=== PATIENT | male | born 1985 | race Caucasian/White ===

== ENCOUNTER 2021-01-16 09:30 | Outpatient (RCR) | payer OTHER, SELFPAY ==
[2021-01-16 09:38] VITALS: BMI 41.4
[2021-01-16 09:42] VITALS: BMI 41.4
== END 2021-04-02 09:23 | disposition home or self-care (01) ==
LOC: ANHDMC 09:30
PROVIDERS: PCP Internal Medicine; Referring Provider Nurse Practitioner; Visit Provider Nurse Practitioner
DX: E11.9 Type 2 diabetes mellitus without complications (principal); Z71.3 Dietary counseling and surveillance
CPT/HCPCS: 97802

== ENCOUNTER 2021-03-15 14:44 | Outpatient (CLI) | payer OTHER, SELFPAY ==
--- NOTE | ~2021-03-15 | XR_ITS ---
EXAMINATION: XR ankle RT min 3V DATE: 03/15/2021 15:00 INDICATION: Right ankle pain. TECHNIQUE: 4 views of right ankle were obtained. COMPARISON: None. FINDINGS: Bone alignment is normal. No fracture. Joint spaces are well maintained. There are enthesop hytes at the posterior and plantar aspects of calcaneal tuberosity. IMPRESSION: 1. No fracture. Reviewed, dictated and finalized at location A. IMPRESSION: 1. No fracture.
--- NOTE | ~2021-03-15 | XR_ITS ---
EXAMINATION: XR foot RT min 3V DATE: 03/15/2021 15:00 INDICATION: Right foot pain. TECHNIQUE: 4 views of right foot were obtained. COMPARISON: None. FINDINGS: Bone alignment is normal. No fracture. There is mild osteoarthritis of first metatarsophala ngeal joint. There are enthesophytes at the posterior and plantar aspects of calcaneal tuberosity. IMPRESSION: 1. Mild osteoarthritis of first metatarsophalangeal joint. Reviewed, dictated and finalized at location A.
== END 2021-03-15 14:45 | disposition home or self-care (01) ==
LOC: ANHIMG 14:48
PROVIDERS: PCP Internal Medicine; Visit Provider Clinical Nurse Specialist
DX: M19.071 Primary osteoarthritis, right ankle and foot (principal)
CPT/HCPCS: 73610; 73630

== ENCOUNTER 2021-07-28 21:17 | Emergency (ER) | payer OTHER, SELFPAY ==
--- NOTE | ~2021-07-28 | XR_ITS ---
EXAMINATION: XR knee RT min 4V EXAM DATE: 07/28/2021 21:49 INDICATION: Initial encounter following injury, with pain of the right knee. TECHNIQUE: Right knee frontal, crosstable lateral, orthogonal oblique projections for interpretation . There is no prior study for comparison. FINDINGS: No evidence osteochondral defect or joint body in the right knee joint. No sizable joint effusion. There are no acute fractures or dislocations identified. There is no subcutaneous gas. T he soft tissue is unremarkable. There are no radiopaque foreign bodies. IMPRESSION: 1. Right knee exam without acute osseous findings. Reviewed, dictated and finalized at location A. ENT FINANCE SPECIALIST
[2021-07-28 21:33] VITALS: BP 134/92; PULSE 96; RESP 17; TEMP 36.2; O2SAT 100
--- NOTE | 2021-07-28 21:37 | ED.LOWEXIN ---
HPI - Extremity Injury (Lower) General Chief Complaint: Extremity Injury, Lower <Kyra David PA-C - Last Filed: 07/28/21 23:29> Stated Complaint: right leg pain <CHARLES Cassidy Last Filed: 07/28/21 23:29> Time Seen by Provider: 07/28/21 21:33 <Kyra David PA-C - Last Filed: 07/28/21 23:29> Source: patient <CHARLES Cassidy Last Filed: 07/28/21 23:29> Mode of arrival: ambulatory <CHARLES Cassidy Last Filed: 07/28/21 23:29> Limitations: no limitations <CHARLES Cassidy Last Filed: 07/28/21 23:29> History of Present Illness HPI Narrative: This is a 35 year old male that presents to the ER for right knee injury sustained just prior to arrival. Reports he was walking up the steps and one gave away. Reports this caused him to fall forward onto his right knee. Reports pain and bruising to the area. Denies decreased ROM or numbness. <Kyra David PA-C - Last Filed: 07/28/21 23:29> Related Data Home Medications: Home Medications Medication Instructions Recorded Confirmed acetaminophen 500 mg tablet 500 mg PO Q6H PRN 10/24/20 07/11/21 ibuprofen 200 mg capsule 200 mg PO Q6H PRN 10/24/20 07/11/21 melatonin 5 mg capsule mg PO 10/24/20 07/11/21 <Kyra David PA-C - Last Filed: 07/28/21 23:29> Allergies/Adverse Reactions: Allergies Allergy/AdvReac Type Severity Reaction Status Date / Time Sulfa (Sulfonamide AdvReac Unknown Nausea and Verified 07/28/21 21:37 Antibiotics) Vomiting <CHARLES Cassidy Last Filed: 07/28/21 23:29> Review of Systems Review of Systems: CONSTITUTIONAL: Denies fever MUSCULOSKELETAL: Reports joint pain, and myalgia. NEUROLOGIC: Denies numbness, or weakness. <CHARLES Cassidy Last Filed: 07/28/21 23:29> All systems reviewed & are unremarkable except as noted in HPI and below <Kyra David PA-C - Last Filed: 07/28/21 23:29> PMFSH Past Medical History Medical History: Medical History (Updated 07/29/21 @ 00:00 by Background [place]) Allergies Asthma Diabetes mellitus Telangiectasia <Kyra David PA-C - Last Filed: 07/28/21 23:29> Family History Family History: Family History Mother Depression Anxiety Alcohol abuse Father Diabetes mellitus Sibling Diabetes mellitus Grandparent Diabetes mellitus Hypertension <Kyra David PA-C - Last Filed: 07/28/21 23:29> Social History Social History: Social History Smoking status: Never smoker Alcohol intake: current Spiritual care concerns: No <Kyra David PA-C - Last Filed: 07/28/21 23:29> Exam Narrative: GENERAL: Well-appearing, well-nourished, and in no acute distress. HEAD: Normocephalic, atraumatic. EYES: EOMI. EXTREMITIES: Normal range of motion. No edema or obvious deformity. Normal DP pulses. Normal sensation SKIN: Warm, dry, no rash. NEURO: No focal deficits. Alert and oriented x3. 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 I was available for evaluation and consultation, I agree with the documentation as above <Husam Harrison MD - Last Filed: 07/29/21 05:14> Vital Signs Vital signs: Vital Signs Temperature 36.2 C L 07/28/21 21:33 Pulse Rate 96 07/28/21 21:33 Respiratory Rate 17 07/28/21 21:33 Blood Pressure 134/92 H 07/28/21 21:33 Pulse Oximetry 100 07/28/21 21:33 Temperature 36.2 C L 07/28/21 22:59 Pulse Rate 85 07/28/21 22:59 Respiratory Rate 20 07/28/21 22:59 Blood Pressure 137/92 H 07/28/21 22:59 Pulse Oximetry 98 07/28/21 22:59 <Kyra David PA-C - Last Filed: 07/28/21 23:29> Vital Signs Temperature 36.2 C L 07/28/21 21:33 Pulse Rate 96 11
[2021-07-28] MEDS: ACETAMINOPHEN 500 MG TABLET 1000 MG PO (22:12)
--- NOTE | 2021-07-28 22:20 | PC.NURSE ---
Pt to ED H3 and reports of walking up stairs and 1st stair giving out, causing pt to fall and strike his right knee on 2nd and 3rd steps. no edema/deformity/discoloration. pt denies hitting head. denies loc. able to get up without assist after fall.
[2021-07-28 22:59] VITALS: BP 137/92; PULSE 85; RESP 20; TEMP 36.2; O2SAT 98
== END 2021-07-28 23:49 | disposition home or self-care (01) ==
PROVIDERS: Emergency Provider Emergency Medicine; PCP Internal Medicine
DX: S80.01XA Contusion of right knee, initial encounter (principal); J45.909 Unspecified asthma, uncomplicated; E11.9 Type 2 diabetes mellitus without complications; Z79.84 Long term (current) use of oral hypoglycemic drugs; W10.9XXA Fall (on) (from) unspecified stairs and steps, initial encounter
CPT/HCPCS: 73564; 99283; A9270

== ENCOUNTER 2021-08-27 18:47 | Emergency (ER) | payer OTHER, SELFPAY ==
--- NOTE | ~2021-08-27 | XR_ITS ---
EXAMINATION: XR knee RT 3V DATE: 08/27/2021 22:03 INDICATION: TECHNIQUE: Persistent right knee pain post injury one month prior of the right knee were obtained COMPARISON: None. FINDINGS: Alignment is normal. No fracture. Joint spaces appear normal on nonweightbearing imaging. No joint ef fusion/layering lipohemarthrosis. Soft tissues are unremarkable. IMPRESSION: 1. Negative right knee radiographs. Reviewed, dictated and finalized at location H. ERCIAL HOUSEKEEPER
[2021-08-27 18:53] VITALS: BP 154/101; PULSE 85; RESP 17; TEMP 36.4; O2SAT 98
[2021-08-27 21:13] VITALS: BP 140/83; PULSE 88; RESP 18; TEMP 36.7; O2SAT 99
--- NOTE | 2021-08-27 21:51 | ED.LOWEXIN ---
HPI - Extremity Injury (Lower) General Chief Complaint: Extremity Injury, Lower Stated Complaint: right knee injury Time Seen by Provider: 08/27/21 21:02 Source: patient Mode of arrival: ambulatory Limitations: no limitations History of Present Illness HPI Narrative: Patient is a 35-year-old male complaining of right knee pain and swelling that is been ongoing for the past month. Patient states that he saw his PCP recently and was placed on a Medrol Dosepak. Patient states that since starting his steroid pack he noticed an increase swelling of his right knee. Patient also states that he felt like he had a fever yesterday, subjective. Patient denies any calf pain or swelling, chest pain, shortness of breath, or cold extremity. Related Data Home Medications Medication Instructions Recorded Confirmed acetaminophen 500 mg tablet 500 mg PO Q6H PRN 10/24/20 08/08/21 ibuprofen 200 mg capsule 200 mg PO Q6H PRN 10/24/20 08/08/21 melatonin 5 mg capsule mg PO 10/24/20 08/08/21 Allergies Allergy/AdvReac Type Severity Reaction Status Date / Time Sulfa (Sulfonamide AdvReac Unknown Nausea and Verified 08/27/21 21:18 Antibiotics) Vomiting Review of Systems Review of Systems: All systems reviewed & are unremarkable except as noted in HPI and below Constitutional: Constitutional: Reports as per HPI PMFSH Past Medical History Medical History Allergies Asthma Diabetes mellitus Telangiectasia Family History Family History Mother Depression Anxiety Alcohol abuse Father Diabetes mellitus Sibling Diabetes mellitus Grandparent Diabetes mellitus Hypertension Social History Social History Smoking status: Never smoker Alcohol intake: current Spiritual care concerns: No Exam Const: General: no acute distress and alert Orientation/consciousness: patient oriented x3 HENMT: Head: normal to inspection Eyes: Conjunctivae: conjunctivae normal Neck: Neck: normal visual inspection Resp: Effort & Inspection: normal respiratory effort Skin: General skin exam: normal color Rashes: no rashes Extrem: General: normal to inspection Other: Negative for any deformity or effusion. Negative for knee redness or warmth. Full range of motion of the right knee but with pain. Negative for Homans' sign. Negative for calf pain or swelling. Neurovascular is intact. Course Vital Signs Vital signs: Vital Signs Temperature 36.4 C L 08/27/21 18:53 Pulse Rate 85 08/27/21 18:53 Respiratory Rate 17 08/27/21 18:53 Blood Pressure 154/101 H 08/27/21 18:53 Pulse Oximetry 98 08/27/21 18:53 Temperature 36.7 C 08/27/21 21:13 Pulse Rate 88 08/27/21 21:13 Respiratory Rate 18 08/27/21 21:13 Blood Pressure 140/83 08/27/21 21:13 Pulse Oximetry 99 08/27/21 21:13 Discharge Plan Discharge Clinical Impression: Knee pain, right Qualifiers: Chronicity: unspecified Qualified Code(s): M25.561 - Pain in right knee Patient Disposition: Home, Self-Care Condition: Stable Instructions: Knee Pain (ED) Prescriptions: No Action metformin 1,000 mg tablet 1,000 mg PO BID Qty: 180 RF: 3 lisinopril 2.5 mg tablet 2.5 mg PO DAILY Qty: 90 RF: 3 gabapentin 300 mg capsule 300 mg PO BID Qty: 60 RF: 2 acetaminophen [Tylenol Extra Strength] 500 mg tablet 500 mg PO Q6H PRNRF: 0 ibuprofen 200 mg capsule 200 mg PO Q6H PRNRF: 0 melatonin 5 mg capsule PO RF: 0 methylprednisolone [Medrol (Dillon)] 4 mg tablets,dose pack See Rx Instructions PO PER PKG DIR Qty: 21 RF: 0 Follow-up/Referrals: Dov Santillan DO [Primary Care Provider] - 08/28/21 Time of Disposition: 22:28
[2021-08-27 23:00] VITALS: BP 131/77; PULSE 81; RESP 15; TEMP 36.6; O2SAT 99
== END 2021-08-27 23:00 | disposition home or self-care (01) ==
PROVIDERS: Emergency Provider Emergency Medicine; PCP Internal Medicine
DX: M25.561 Pain in right knee (principal); J45.909 Unspecified asthma, uncomplicated; E11.9 Type 2 diabetes mellitus without complications; Z79.84 Long term (current) use of oral hypoglycemic drugs
CPT/HCPCS: 73562; 99283

== ENCOUNTER 2021-09-13 13:18 | Outpatient (CLI) | payer OTHER, SELFPAY ==
--- NOTE | ~2021-09-13 | MR_ITS ---
EXAMINATION: MR knee RT wo con DATE: 09/13/2021 14:18 INDICATION: Right knee pain TECHNIQUE: Magnetic resonance imaging (MRI) of the right knee was performed without intravenous contr ast. Sequences included coronal PD-weighted FSE, coronal PD-weighted FS FSE, sagittal T2-weighted FS E, sagittal PD-weighted FS FSE and axial PD weighted fat saturated FSE. COMPARISON: None. FINDINGS: Medial compartment: Medial meniscus is normal. Articular cartilage is normal. Lateral compartment: Lateral meniscus is normal. Articular cartilage is normal. Patellofemoral compartment: Articular cartilage is normal. Ligaments and tendons: Anterior and posterior cruciate ligaments are normal. The medial collateral ligament and fibular julius ateral ligament complex are normal. The extensor mechanism is normal. The visualized medial and later al hamstring tendons as well as the iliotibial band are normal. Fluid: Physiologic amount of fluid in the joint space. No loose osteochondral bodies identified. Osseous/other: Small low signal intensity bone island at the lateral femoral condyle. Otherwise normal marrow signal with no fracture or pathologic marrow replacing process. IMPRESSION: 1. Unremarkable right knee MRI. Cartilage, menisci and stabilizing ligaments of the knee are normal. Reviewed, dictated and finalized at location B. NER AND PRESSER
== END 2021-09-13 13:19 | disposition home or self-care (01) ==
LOC: ANHIMG 13:23
PROVIDERS: PCP Internal Medicine; Visit Provider Internal Medicine
DX: S82.091A Other fracture of right patella, initial encounter for closed fracture (principal)
CPT/HCPCS: 73721

== ENCOUNTER 2022-03-15 18:43 | Emergency (ER) | payer OTHER, SELFPAY ==
--- NOTE | ~2022-03-15 | XR_ITS ---
XR foot RT min 3V DATE: 03/15/2022 19:34 INDICATION: Stubbed fifth digit. Bruising and swelling. TECHNIQUE: 4 portable views COMPARISON: None FINDINGS: Mild plantar and posterior calcaneal enthesopathy. No fracture or dislocation, periosteal reaction or bone destruction. No erosive change. IMPRESSION: No fracture or dislocation is detected Reviewed, dictated and finalized at location A.
[2022-03-15 18:46] VITALS: BP 145/82; PULSE 98; RESP 18; TEMP 36.4; O2SAT 98
--- NOTE | 2022-03-15 19:24 | ED.LOWEXIN ---
HPI - Extremity Injury (Lower) General Chief Complaint: Extremity Injury, Lower Stated Complaint: toe injury Time Seen by Provider: 03/15/22 19:02 Source: RN notes reviewed History of Present Illness HPI Narrative: Patient presents emergency department from home for right fifth toe pain. Patient states that just prior to arrival he had hit a slick spot on his deck and his foot had gone forward striking a post on his right lateral fifth toe he states has had pain since that time is worse with standing on the foot he denies any other trauma or injury he denies falling to the ground states he is not taking thing for pain Related Data Home Medications Medication Instructions Recorded Confirmed acetaminophen 500 mg tablet 500 mg PO Q6H PRN 10/24/20 01/30/22 (Tylenol Extra Strength) ibuprofen 200 mg capsule 200 mg PO Q6H PRN 10/24/20 01/30/22 melatonin 5 mg capsule mg PO 10/24/20 01/30/22 Allergies Allergy/AdvReac Type Severity Reaction Status Date / Time Sulfa (Sulfonamide AdvReac Unknown Nausea and Verified 03/15/22 19:33 Antibiotics) Vomiting Review of Systems Review of Systems: Gen.: Denies fevers or chills Musculoskeletal: See HPI Neuro: Denies numbness, tingling, weakness Skin: Denies rash Endo: Denies DM PMFSH Past Medical History Medical History Allergies Asthma Bleeding nose Congestion of throat Diabetes mellitus Establishing care with new doctor, encounter for Foot pain Hyperlipidemia Knee pain Obesity Patellar tendonitis Screening for endocrine disorder Screening for lipid disorders Telangiectasia Thrombocytopenia Surgical History Surgical History History of surgery on wrist 1998, 2020 History of surgical procedure on mouth 1999 Family History Family History Mother Depression Anxiety Alcohol abuse Father Diabetes mellitus Sibling Diabetes mellitus Grandparent Diabetes mellitus Hypertension Other Leukemia Other Arthritis Asthma Social History Social History Social History: Caffeine-coffee/soda daily Smoking status: Never smoker Alcohol intake: current Alcohol use details: rarely Spiritual care concerns: No Exam Narrative: APPEARANCE: No acute distress, nontoxic, resting in bed Eyes: EOMI HEENT: Normocephalic, atraumatic, RESPIRATORY: No respiratory distress MUSCULOSKELETAl: Tender to palpation over the right lateral foot at the base of the fifth toe mild swelling and ecchymosis remainder the foot is nontender dorsalis pedis pulse 2+ neurovascular intact NEURO: Awake and alert. Following commands, speech normal, no focal deficits SKIN:: Warm, dry. Normal Color no rash or lesions Course Course Emergency Course: Discussed with patient results of workup and diagnosis. Discussed need for follow-up with primary care, proper use of medication, and reasons to return to the emergency department. Patient understands and agrees to current treatment plan Vital Signs Vital signs: Vital Signs Temperature 97.6 F 03/15/22 18:46 Pulse Rate 98 03/15/22 18:46 Respiratory Rate 18 03/15/22 18:46 Blood Pressure 145/82 H 03/15/22 18:46 Pulse Oximetry 98 03/15/22 18:46 Oxygen Delivery Room Air 03/15/22 18:46 Temperature 97.6 F 03/15/22 18:46 Pulse Rate 98 03/15/22 18:46 Respiratory Rate 18 03/15/22 18:46 Blood Pressure 145/82 H 03/15/22 18:46 Pulse Oximetry 98 03/15/22 18:46 Oxygen Delivery Room Air 03/15/22 18:46 MDM - Extremity Injury (Lower) Imaging Data Radiologist's impression: ITS Impressions Foot X-Ray 03/15/22 19:39 IMPRESSION: No fracture or dislocation is detected Discharge Plan Discharge Clinical Impression: Contusion of foot, right Patient Disposition: Home
== END 2022-03-15 20:21 | disposition home or self-care (01) ==
PROVIDERS: Emergency Provider Emergency Medicine; PCP Internal Medicine
DX: S90.31XA Contusion of right foot, initial encounter (principal); J45.909 Unspecified asthma, uncomplicated; E11.9 Type 2 diabetes mellitus without complications; R78.5 Finding of other psychotropic drug in blood; E66.9 Obesity, unspecified; Z68.41 Body mass index [BMI] 40.0-44.9, adult; W22.09XA Striking against other stationary object, initial encounter
CPT/HCPCS: 73630; 99283

== ENCOUNTER 2022-04-05 10:37 | Outpatient (CLI) | payer OTHER, SELFPAY ==
[2022-04-05 11:09] LABS: Basophils Percent Auto 0.6 % (0.2-1.2); Eosinophils Absolute Auto 0.1 K/mm3 (0-0.3); Eosinophils Percent Auto 1.3 % (0-4.4); Hematocrit 43.9 % (42.0-52.0); Hemoglobin 14.8 g/dL (14.0-18.0); Immature Granulocyte Absolute 0.02 K/mm3 (0.00-0.031); Immature Granulocyte Percent A 0.3 % (0-0.5); Lymphocytes Percent Auto 29.5 % (18.3-44.2); Mean Corpuscular HGB Conc 33.7 g/dl (32-36); Mean Corpuscular Hemoglobin 29.6 pg (26-34); Mean Corpuscular Volume 87.8 fl (80-100); Mean Platelet Volume 12.2 fl (7.4-10.4); Monocytes Absolute Auto 0.5 K/mm3 (0.1-0.6); Monocytes Percent Auto 7.3 % (2.6-8.5); Neutrophils Absolute Auto 4.3 K/mm3 (1.3-6.7); Platelet Count Result 109 k/mm3 (150-375); Red Cell Distribution Width 13.2 % (11.5-14.5); White Blood Count 7.1 K/mm3 (4.5-10.0)
[2022-04-05 12:26] LABS: Iron 124 ug/dL (49-181)
[2022-04-05 12:30] LABS: Alanine Aminotransferase 37 U/L (6-50); Albumin Level 4.5 g/dL (3.5-5.1); Alkaline Phosphatase 98 U/L (38-126); Anion Gap 10 mmol/L (8-16); Aspartate Amino Transferase 31 U/L (17-59); Blood Urea Nitrogen 9 mg/dL (9-20); Carbon Dioxide 29 mmol/L (22-30); Chloride 101 mmol/L (98-107); Estimated Glomerular Filt Rate > 60; Glucose 140 mg/dL (65-110); Potassium 3.9 mmol/L (3.4-5.0); Sodium 140 mmol/L (137-145)
[2022-04-05 12:38] LABS: Percent Iron Saturation 38 % (20-50)
== END 2022-04-05 10:38 | disposition home or self-care (01) ==
LOC: ANHLAB 10:38
PROVIDERS: PCP Internal Medicine; Visit Provider Internal Medicine Hematology & Oncology
DX: D69.59 Other secondary thrombocytopenia (principal); D64.9 Anemia, unspecified
CPT/HCPCS: 36415; 80053; 82607; 82728; 82746; 83540; 83550; 85025

== ENCOUNTER → 2022-04-29 09:04 | Outpatient (CLI) | payer OTHER, SELFPAY ==
--- NOTE | ~2022-04-29 | US_ITS ---
EXAMINATION: US abdomen complete DATE: 04/29/2022 09:30 INDICATION: Secondary thrombocytopenia. TECHNIQUE: Multiple grayscale and Doppler ultrasound images of the abdomen were obtained. COMPARISON: None FINDINGS: There is mild splenomegaly measuring 14.0 cm. The visualized portions of the head and body of the pancreas are normal. The liver is normal without focal lesion. No liver surface nodularity. Th ere is normal flow in main portal vein. The gallbladder is normal in size and contains gallstones. No gallbladder wall thickening or sonographic Alexander sign. The common duct is normal and measures 4 mm. The kidneys are normal in size. Inferior vena cava is normal. The visualized portion of abdominal ao rta is normal. IMPRESSION: 1. Mild splenomegaly. 2. Cholelithiasis. No evidence of acute cholecystitis. Reviewed, dictated and finalized at location A.
== END ==
PROVIDERS: PCP Internal Medicine Hematology & Oncology; Visit Provider Internal Medicine Hematology & Oncology
DX: D69.59 Other secondary thrombocytopenia (principal); R16.1 Splenomegaly, not elsewhere classified; K80.20 Calculus of gallbladder without cholecystitis without obstruction
CPT/HCPCS: 76700

== ENCOUNTER 2022-05-31 08:50 | Outpatient (CLI) | payer OTHER, SELFPAY ==
--- NOTE | ~2022-05-31 | CT_ITS ---
EXAMINATION: CT chest abdomen pelvis w con DATE: 05/31/2022 09:35 INDICATION: Lymphadenopathy TECHNIQUE: Computed tomography (CT) of the chest, abdomen, and pelvis was performed with 100 CC Omnip aque 350 intravenous contrast. Automated exposure control and iterative reconstruction technique were employed. Exam dose: 1783.48 mGy-cm total exam DLP. COMPARISON: 04/29/2022 complete abdominal ultrasound examination FINDINGS: CHEST CT: There are a few calcified pulmonary granulomas consistent with old pulmonary granulomatous disease. N o pulmonary infiltrate or consolidation or pulmonary mass lesion is detected. Normal heart size. No pericardial or pleural effusion. No thoracic aortic aneurysm or dissection. No hilar or mediastinal mass lesion or lymphadenopathy. No axillary lymphadenopathy. ABDOMEN/PELVIS CT: There is a prominent calcified approximately 1.8 x 2.2 cm gallstone. No gallbladder wall thickening o r pericholecystic fluid or fat stranding. Diffuse hepatic steatosis. No hepatic space-occupying mass lesion is evident. The spleen measures approximately 13 cm vertical dimension. No splenic mass lesion is noted. No pancreatic mass lesion, calcification or ductal dilatation. Normal morphology of the adrenal glands. Occasional renal cysts measuring up to approximately 6.7 mm dimension. There are couple of up to 4 mm right renal cysts. No urinary tract calculus or hydroureteronephrosis. Normal caliber of the abdominal aorta. No intraperitoneal or retroperitoneal or pelvic mass lesion or adenopathy or ascites. Normal appendix. Mild colonic diverticulosis; no CT evidence of diverticulitis. No bowel obstruction. There is an approximately 2.4 cm segment of circumferential soft tissue thickening of the sigmoid col on (series 3 image 220). Constricting apple core lesion is not excluded. Colon workup is recommended, either barium enema or colonoscopy. No pneumoperitoneum. Very small fat-containing umbilical hernia. Prostate gland and urinary bladder are unremarkable. No suspicious osteolytic or osteoblastic lesions are noted. IMPRESSION: Questionable circumferential constricting soft tissue mass of sigmoid colon; colon hnag p is recommended (barium enema or colonoscopy Mild diverticulosis of the colon Normal appendix Cholelithiasis Hepatic steatosis Borderline splenomegaly Bilateral renal cysts Reviewed, dictated and finalized at Location A. Reviewed, dictated and finalized at location B. IMPRESSION: Questionable circumferential constricting soft tissue mass of sigm oid colon; colon workup is recommended (barium enema or colonoscopy Mild diverticulosis of the colon Normal appendix Cholelithiasis Hepatic steatosis Borderline splenomegaly Bilateral renal cysts
[2022-05-31 09:23] LABS: Estimated Glomerular Filt Rate > 60
== END 2022-05-31 08:51 | disposition home or self-care (01) ==
PROVIDERS: PCP Internal Medicine; Visit Provider Internal Medicine Hematology & Oncology
DX: R59.1 Generalized enlarged lymph nodes (principal); R59.9 Enlarged lymph nodes, unspecified; K57.30 Diverticulosis of large intestine without perforation or abscess without bleeding; K80.20 Calculus of gallbladder without cholecystitis without obstruction; N28.1 Cyst of kidney, acquired
CPT/HCPCS: 71260; 74177; Q9967

== ENCOUNTER 2022-06-14 01:00 | Day surgery (SDC) | payer OTHER, SELFPAY ==
[2022-06-10 13:28] VITALS: BMI 38.4
[2022-06-14 08:30] VITALS: BP 117/92; PULSE 16; RESP 16; TEMP 36.2; O2SAT 100; BMI 38.6
[2022-06-14 08:48] LABS: Glucose Point of Care 126 mg/dl (65-105)
[2022-06-14] MEDS: LACTATED RINGERS 1,000 ML 150 ML IV CONT (08:52)
--- NOTE | 2022-06-14 09:15 | WPDANESEPPF ---
Anes - Initial Pre Proc Eval Procedure: Operation Date: 06/14/22 09:30 Proposed Procedures p Colonoscopy - Eran Zapata MD Date/Time: 06/14/22 09:15 Surgeon: Eran Zapata MD Pre Op Diagnosis: Abnormal CT Scan Patient Data Age: 36 Gender: M Height: 1.68 m Weight: 108.6 kg Last Vital Signs Temp 97.1 F L 06/14/22 08:30 Pulse 16 L 06/14/22 08:30 Resp 16 06/14/22 08:30 BP 117/92 H 06/14/22 08:30 Pulse Ox 100 06/14/22 08:30 O2 Del Method Room Air 06/14/22 08:30 Allergies Allergy/AdvReac Type Severity Reaction Status Date / Time Sulfa (Sulfonamide AdvReac Severe Nausea and Verified 06/10/22 13:32 Antibiotics) Vomiting Home Medications Medication Instructions Recorded Confirmed Type acetaminophen 500 mg tablet 500 mg PO Q6H PRN PAIN 10/24/20 06/10/22 History (Tylenol Extra Strength) melatonin 5 mg capsule 5 mg PO HS 10/24/20 06/10/22 History atorvastatin 10 mg tablet 10 mg PO QHS #90 tabs 01/30/22 06/10/22 Rx lisinopril 2.5 mg tablet 2.5 mg PO DAILY #90 tabs 01/30/22 06/10/22 Rx metformin 1,000 mg tablet 1,000 mg PO BID #180 tabs 01/30/22 06/10/22 Rx cyanocobalamin (vitamin B-12) 1,000 mcg PO DAILY 06/10/22 06/10/22 History 1,000 mcg tablet (Vitamin B-12) gabapentin 300 mg capsule 300 mg PO BID PRN pain 06/10/22 06/10/22 History multivitamin 1 tablet PO DAILY 06/10/22 06/10/22 History Laboratory Tests 06/14/22 08:46 POC Capillary Glucose 126 mg/dl H mg/dl (65-105) Patient hx anesthesia problems: none Family hx anesthesia problems: none Results Review: All pre-operative results and documents have been reviewed as part of the pre-operative evaluation. [facility] Past Medical History Medical History Allergies Asthma Bleeding nose Congestion of throat Diabetes mellitus Establishing care with new doctor, encounter for Foot pain Hyperlipidemia Knee pain Obesity Patellar tendonitis Screening for endocrine disorder Screening for lipid disorders Telangiectasia Thrombocytopenia Surgical History Surgical History History of surgery on wrist 2020 History of surgical procedure on mouth 1999 Family History Family History Mother Depression Anxiety Alcohol abuse Father Diabetes mellitus Sibling Diabetes mellitus Grandparent Diabetes mellitus Hypertension Other Leukemia Other Arthritis Asthma Social History Social History Social History: Caffeine-coffee/soda daily Smoking status: Never smoker Alcohol intake: current Alcohol use details: rarely Substance use: never Substance use type: does not use Living arrangements: with family Spiritual care concerns: No Anes - Eval Final PreProcedure Day of Procedure 06/14/22 09:15 Patient weight: obese Heart: regular rate and rhythm Lungs: clear to auscultation Airway: Mallampati scale class II Neurological: alert and oriented Last oral intake: >/= 8 hours ASA classification: III Emergent: no Anesthetic plan: proceed Anesthesia type and monitoring: general GIVS and standard monitoring Results Review: All pre-operative results and documents have been reviewed as part of the pre-operative evaluation. Informed Consent: The patient's anesthetic plan and its attendant risks and benefits were discussed with the patient/family/POA. Questions were solicited and answers provided to the satisfaction of the patient/family/POA.
--- NOTE | 2022-06-14 09:19 | PM.HPGS ---
History of Present Illness History of Present Illness Consent: Risks, benefits, and alternatives have been discussed and questions answered. Patient agrees to proceed with procedure. Chief complaint: Abnormal CT Scan Narrative: Roman Gonzalez is a 36 year old male with abnormal sigmoid colon by ct scan (ordered because thrombocytopenia), he has constipation, no previous colonoscopy, no family history of colon cancer Review of Systems Constitutional: Constitutional: Denies headache(s) and Denies weakness Eyes: Eyes: Denies blurry vision ENT: Reports Normal hearing present, Denies headache(s) and Denies neck pain Cardiovascular: Cardiovascular: Denies chest pain and Denies dyspnea Respiratory: Respiratory: Denies dyspnea Gastrointestinal: Gastrointestinal: Reports no additional gastrointestinal complaints Genitourinary: Genitourinary: Denies dysuria Musculoskeletal: Musculoskeletal: Denies neck pain Integumentary/Breasts: Skin/Breast: Denies dry skin Neurologic: Reports Normal hearing present, Denies headache(s) and Denies weakness Psychiatric: Psychiatric: Denies anxiety Endocrine: Endocrine: Denies change in body appearance Hematologic/Lymphatic: Hematologic/Lymphatic: Denies easy bleeding Allergic/Immunologic: Allergic/Immunologic: Denies urticaria PMFSH Past Medical History Medical History (Updated 06/14/22 @ 09:20 by Eran Zapata MD) Abnormal CT scan, sigmoid colon Allergies Asthma Bleeding nose Congestion of throat Diabetes mellitus Establishing care with new doctor, encounter for Foot pain Hyperlipidemia Knee pain Obesity Patellar tendonitis Screening for endocrine disorder Screening for lipid disorders Telangiectasia Thrombocytopenia Surgical History Surgical History History of surgery on wrist 2020 History of surgical procedure on mouth 1999 Family History Family History Mother Depression Anxiety Alcohol abuse Father Diabetes mellitus Sibling Diabetes mellitus Grandparent Diabetes mellitus Hypertension Other Leukemia Other Arthritis Asthma Social History Social History Social History: Caffeine-coffee/soda daily Smoking status: Never smoker Alcohol intake: current Alcohol use details: rarely Substance use: never Substance use type: does not use Living arrangements: with family Spiritual care concerns: No Meds Home Medications and Allergies Home Medications Medication Instructions Recorded Confirmed Type acetaminophen 500 mg tablet 500 mg PO Q6H PRN PAIN 10/24/20 06/10/22 History (Tylenol Extra Strength) melatonin 5 mg capsule 5 mg PO HS 10/24/20 06/10/22 History atorvastatin 10 mg tablet 10 mg PO QHS #90 tabs 01/30/22 06/10/22 Rx lisinopril 2.5 mg tablet 2.5 mg PO DAILY #90 tabs 01/30/22 06/10/22 Rx metformin 1,000 mg tablet 1,000 mg PO BID #180 tabs 01/30/22 06/10/22 Rx cyanocobalamin (vitamin B-12) 1,000 mcg PO DAILY 06/10/22 06/10/22 History 1,000 mcg tablet (Vitamin B-12) gabapentin 300 mg capsule 300 mg PO BID PRN pain 06/10/22 06/10/22 History multivitamin 1 tablet PO DAILY 06/10/22 06/10/22 History Allergies Allergy/AdvReac Type Severity Reaction Status Date / Time Sulfa (Sulfonamide AdvReac Severe Nausea and Verified 06/10/22 13:32 Antibiotics) Vomiting Vital Signs Vital Signs - 24 hr 06/14/22 08:30 Temperature 97.1 F L Pulse Rate 16 L Respiratory Rate 16 Blood Pressure 117/92 H Pulse Oximetry 100 Oxygen Delivery Room Air Exam Const: General: comfortable and no acute distress HENMT: Face/Nose/Sinus: Normal nares present Eyes: General: appearance normal, both eyes and all related structures Neck: Neck: no JVD Resp: Auscultation: clear to auscultation bilaterally Cardio: Rate: regular rate Rhyt
[2022-06-14 09:51] VITALS: BP 121/85; PULSE 75; RESP 16; O2SAT 97
[2022-06-14 10:01] VITALS: BP 132/92; PULSE 66; RESP 23; O2SAT 99
[2022-06-14 10:11] VITALS: BP 134/96; PULSE 61; RESP 16; O2SAT 99
== END 2022-06-14 10:33 | disposition home or self-care (01) ==
PROVIDERS: PCP Internal Medicine; Visit Provider Internal Medicine Gastroenterology
PROC: 0DJD8ZZ Inspection of Lower Intestinal Tract, Via Natural or Artificial Opening Endoscopic (ICD-10-PCS; CPT 45378; principal; 2022-06-14 09:30)
DX: D12.2 Benign neoplasm of ascending colon (principal); D12.4 Benign neoplasm of descending colon; K59.00 Constipation, unspecified; D69.6 Thrombocytopenia, unspecified; J45.909 Unspecified asthma, uncomplicated; E78.5 Hyperlipidemia, unspecified; E11.9 Type 2 diabetes mellitus without complications; Z79.84 Long term (current) use of oral hypoglycemic drugs; E66.9 Obesity, unspecified; Z68.38 Body mass index [BMI] 38.0-38.9, adult
CPT/HCPCS: 45385; 82948; 88305; J2001; J2704; J7120

== ENCOUNTER 2022-07-09 15:15 | Emergency (ER) | payer OTHER, SELFPAY ==
--- NOTE | ~2022-07-09 | CT_ITS ---
EXAMINATION: CT abdomen pelvis w con DATE: 07/09/2022 17:18 INDICATION: Lower abdominal pain, rectal bleeding TECHNIQUE: Computed tomography (CT) of the abdomen and pelvis was performed with 100 CC Omnipaque 350 intravenous contrast. Automated exposure control and iterative reconstruction technique were employe d. Exam dose: 1226.95 mGy-cm total exam DLP. COMPARISON: 05/31/2022 CT chest abdomen pelvis FINDINGS: Occasional small calcified pulmonary granulomas consistent with old granulomatous disease. Included lung zones are clear of infiltrate or consolidation. Normal heart size. No pericardial or pl eural effusion. Approximately 2 cm peripherally calcified gallstone. No gallbladder wall thickening or pericholecysti c fluid or fat stranding. No bile duct dilatation. No hepatic space-occupying mass lesion. Spleen is within upper limits normal size at approximately 12.6 cm vertical dimension. No pancreatic mass lesion, calcification or ductal dictation. Normal morphology of the adrenal glands. Occasional bilateral small renal cysts . No urinary tract calculus or hydroureteronephrosis. The urinary bladder and prostate gland are unre markable. Normal appendix. No bowel obstruction, bowel wall thickening, pneumatosis or intraperitoneal free air is evident. Normal caliber of the abdominal aorta. No intraperitoneal or retroperitoneal or pelvic mass lesion or adenopathy or ascites. Very small fat-containing umbilical hernia. No suspicious osteolytic or osteoblastic lesions. IMPRESSION: Cholelithiasis Normal appendix Bilateral renal cysts Reviewed, dictated and finalized at [facility]. Reviewed, dictated and finalized at [facility].
[2022-07-09 15:30] VITALS: BP 135/97; PULSE 80; RESP 14; TEMP 36.3; O2SAT 99
[2022-07-09 15:59] LABS: Basophils Percent Auto 0.5 % (0.2-1.2); Eosinophils Absolute Auto 0.1 K/mm3 (0-0.3); Hematocrit 45.4 % (42.0-52.0); Hemoglobin 15.5 g/dL (14.0-18.0); Immature Granulocyte Absolute 0.01 K/mm3 (0.00-0.031); Immature Granulocyte Percent A 0.1 % (0-0.5); Lymphocytes Absolute Auto 2.16 K/mm3 (0.9-3.2); Mean Corpuscular HGB Conc 34.1 g/dl (32-36); Mean Corpuscular Hemoglobin 30.4 pg (26-34); Mean Platelet Volume 12.8 fl (7.4-10.4); Monocytes Absolute Auto 0.5 K/mm3 (0.1-0.6); Monocytes Percent Auto 6.5 % (2.6-8.5); Neutrophils Absolute Auto 5.2 K/mm3 (1.3-6.7); Neutrophils Percent Auto 64.9 % (45.5-73.1); Platelet Count Result 132 k/mm3 (150-375); Red Cell Distribution Width 13.2 % (11.5-14.5)
[2022-07-09 16:10] LABS: Alanine Aminotransferase 53 U/L (6-50); Albumin Level 4.8 g/dL (3.5-5.1); Alkaline Phosphatase 101 U/L (38-126); Anion Gap 14 mmol/L (8-16); Aspartate Amino Transferase 43 U/L (17-59); Bilirubin,Total 0.8 mg/dL (0.2-1.3); Blood Urea Nitrogen 6 mg/dL (9-20); Carbon Dioxide 24 mmol/L (22-30); Chloride 102 mmol/L (98-107); Estimated CRCL calculation 148 ml/min; Estimated Glomerular Filt Rate > 60; Glucose 133 mg/dL (65-110); INR 1.2; Potassium 3.7 mmol/L (3.4-5.0); Prothrombin Time 14.4 Seconds (11.1-14.7); Sodium 140 mmol/L (137-145)
[2022-07-09 16:11] LABS: Partial Thromboplastin Time 30.1 SECONDS (22.3-36.8)
[2022-07-09 17:06] VITALS: BP 131/83; BP 135/88; PULSE 77; PULSE 80
[2022-07-09 17:07] VITALS: BP 131/91; PULSE 87
--- NOTE | 2022-07-09 17:07 | ED.GIBLEED ---
HPI - GI Bleed General Chief complaint: GI Bleed Stated complaint: rectal bleeding that began 2 days ago Time Seen by Provider: 07/09/22 16:50 History of Present Illness HPI Narrative: 36-year-old male presents to the emergency room for evaluation of lower abdominal pain and a GI bleed. Patient reports bright red rectal bleeding that has been present for 2 days. Patient states that he had a colonoscopy 4 weeks ago to have multiple polyps removed by Stefan friends. States he has noticed bright red blood on the stool, in the water and on the toilet paper. Denies black tarry stools. Patient states he called the GI specialist and was told to come straight to the emergency room for further evaluation. Related Data Home Medications Medication Instructions Recorded Confirmed acetaminophen 500 mg tablet 500 mg PO Q6H PRN PAIN 10/24/20 06/10/22 (Tylenol Extra Strength) melatonin 5 mg capsule 5 mg PO HS 10/24/20 06/10/22 cyanocobalamin (vitamin B-12) 1,000 mcg PO DAILY 06/10/22 06/10/22 1,000 mcg tablet (Vitamin B-12) gabapentin 300 mg capsule 300 mg PO BID PRN pain 06/10/22 06/10/22 multivitamin 1 tablet PO DAILY 06/10/22 06/10/22 Allergies Allergy/AdvReac Type Severity Reaction Status Date / Time Sulfa (Sulfonamide AdvReac Severe Nausea and Verified 07/09/22 15:16 Antibiotics) Vomiting Review of Systems Review of Systems: CONSTITUTIONAL: Denies fever, chills, or sweats. EYES: Denies visual changes, redness, or discharge. ENT: Denies rhinorrhea, congestion, sore throat, or otalgia. CARDIOVASCULAR: Denies chest pain, palpitations, or edema. RESPIRATORY: Denies cough or dyspnea. GASTROINTESTINAL: Reports lower abdominal pain GENITOURINARY: Denies dysuria or hematuria. SKIN: Denies rash or itching. MUSCULOSKELETAL: Denies back pain, joint pain, or myalgia. NEUROLOGIC: Denies headache, numbness, dizziness, or weakness. PSYCHIATRIC: Denies anxiety or depression. [facility] Past Medical History Medical History Abnormal CT scan, sigmoid colon Allergies Asthma Bleeding nose Congestion of throat Diabetes mellitus Establishing care with new doctor, encounter for Foot pain Hyperlipidemia Knee pain Obesity Patellar tendonitis Screening for endocrine disorder Screening for lipid disorders Telangiectasia Thrombocytopenia Surgical History Surgical History History of surgery on wrist 2020 History of surgical procedure on mouth 1999 Family History Family History Mother Depression Anxiety Alcohol abuse Father Diabetes mellitus Sibling Diabetes mellitus Grandparent Diabetes mellitus Hypertension Other Leukemia Other Arthritis Asthma Social History Social History Social History: Caffeine-coffee/soda daily Smoking status: Never smoker Alcohol intake: current Alcohol use details: rarely Substance use: never Substance use type: does not use Spiritual care concerns: No Exam Narrative: GENERAL: Well-appearing, well-nourished, no physical limitations, and in no acute distress. HEAD: Normocephalic, atraumatic. EYES: Conjunctivae normal, PERRLA and EOMI. CHEST: Clear to auscultation. No respiratory distress. No wheezes rales or rhonchi. HEART: Regular rate and rhythm. No murmur heard. Normal peripheral pulses. ABDOMEN: Soft, nontender, or abdominal tenderness, normal active bowel sounds. BACK: No CVA tenderness EXTREMITIES: Normal range of motion. No edema. No clubbing or cyanosis SKIN: Warm, dry, no rash. No noted wounds NEURO: No focal deficits. Alert and oriented x3. MAEW. CN's II-XI intact bilaterally, normal gait PSYCH: Cooperative. Normal mood and affect. Course Vital Signs Vital signs: Vital Signs Temperature 36.3 C L 07/09/22 15:30 Pul
[2022-07-09 17:13] LABS: Appearance Urine Clear (Clear); Bilirubin Urine Negative (Negative); Blood Urine Negative (Negative); Color Urine Yellow (Yellow); Glucose Urine UA Negative (Negative); Ketones Urine Negative (Negative); Leukocyte Esterase Ur Negative LEU/UL (Negative); Nitrate Urine Negative (Negative); Protein Urine Negative (Negative); Urobilinogen Urine 0.2 mg/dL (<2.0); pH Urine 6.5 (5.0-9.0)
[2022-07-09 17:20] LABS: Add Urine Microscopic? NO
[2022-07-09 17:47] VITALS: BP 107/87; PULSE 72; RESP 16; O2SAT 100
== END 2022-07-09 17:55 | disposition home or self-care (01) ==
PROVIDERS: Emergency Medicine; Emergency Provider Nurse Practitioner Family; PCP Internal Medicine
DX: R10.9 Unspecified abdominal pain (principal); K59.00 Constipation, unspecified; J45.909 Unspecified asthma, uncomplicated; E11.9 Type 2 diabetes mellitus without complications
CPT/HCPCS: 36415; 74177; 80053; 81003; 85025; 85610; 85730; 86850; 86900; 86901; 99284; Q9967

== ENCOUNTER 2022-10-01 10:33 | Outpatient (CLI) | payer OTHER, SELFPAY ==
[2022-10-01 20:28] LABS: Thyroid Stimulating Hormone 0.806 uIU/mL (0.465-4.680)
== END 2022-10-01 10:34 | disposition home or self-care (01) ==
LOC: ANHGOSHLAB 10:34
PROVIDERS: PCP Internal Medicine; Visit Provider Nurse Practitioner
DX: R53.83 Other fatigue (principal)
CPT/HCPCS: 36415; 84443

== ENCOUNTER 2022-10-14 13:33 | Outpatient (CLI) | payer OTHER, SELFPAY ==
--- NOTE | ~2022-10-14 | CT_ITS ---
Clinical Indication: Splenomegaly, secondary thrombocytopenia CT Scan of the Chest, Abdomen, and Pelvis with Contrast: Technique: Contiguous sections were acquired throughout the chest, abdomen, and pelvis after intraven ous administration of 100 cc of Omnipaque 350. Dose reduction technique was used on this scan by pratibha carlos automated exposure control and iterative reconstruction technique. The dose-length product (DL P) was 1673.58 mGy-cm. COMPARISON: 07/09/2022 Findings: There is no evidence of any significant mediastinal, hilar or axillary lymphadenopathy. The mediastin al soft tissues and vascular structures appear normal. There is no evidence of pleural or pericardial effusion. The lungs are clear, aside from 2 small calcified granulomas. The liver, pancreas, adrenals and kidneys are within normal limits. Spleen is enlarged, measuring 15. 2 cm in length. 2.5 cm calcific gallstone present. No evidence of aortic aneurysm. No lymphadenopath y. No bowel obstruction or bowel wall thickening. There is no evidence to suggest acute appendicitis. Urinary bladder is unremarkable. Prostate gland and seminal vesicles are unremarkable. Impression: Splenomegaly, of uncertain precise etiology. Cholelithiasis. Reviewed, dictated and finalized at location . UNTING REPRESENTATIVE Impression: Splenomegaly, of uncertain precise etiology. Cholelithiasis.
[2022-10-14 14:00] LABS: Estimated Glomerular Filt Rate > 60
== END 2022-10-14 13:34 | disposition home or self-care (01) ==
PROVIDERS: PCP Internal Medicine; Visit Provider Internal Medicine Hematology & Oncology
DX: R16.1 Splenomegaly, not elsewhere classified (principal); K80.20 Calculus of gallbladder without cholecystitis without obstruction
CPT/HCPCS: 71260; 74177; Q9967

== ENCOUNTER 2022-10-15 08:20 | Outpatient (CLI) | payer OTHER, SELFPAY ==
--- NOTE | 2022-10-21 19:36 | WPDHOMESLEEP ---
Sleep Study - Home Unattended Date of Study: 10/15/22 Ordering Provider: Aurelia Pimentel NP Interpreting Provider: Kym Betancourt, DO Home Sleep Study Type: Apnea Link Air Height: 1.68 m Weight: 113.398 kg Body Mass Index: 40.3 Neck Circumference (inches): 17 [place]: 12 Reason for Sleep Study Daytime hypersomnia Sleep History The patient is a 36-year-old male with diabetes, asthma, hyperlipidemia, splenomegaly, thrombocytopenia, B12 deficiency and obesity that had a sleep study ordered for evaluation of sleep apnea. The patient occasionally awakens from sleep short of breath. He frequently awakens at night with heartburn, belching or cough. He rarely snores and is never loud enough that others complain. He constantly has trouble sleeping when he has a cold. He denies waking up gasping for air throughout the night. He constantly sweats excessively at night. He frequently has heart palpitations or irregular heartbeats during the night. He constantly falls asleep during the day but never while driving. He denies sleep paralysis and cataplexy. He constantly has trouble at school or work due to sleepiness. He rarely experiences vivid dreamlike scenes upon awakening or falling asleep. He denies feeling afraid of going to sleep. He rarely has nightmares. He occasionally remembers his dreams. He frequently has thoughts racing through his mind. He denies feeling sad, depressed or anxious. He denies having muscular tension. He rarely notices parts of his body jerk. He occasionally kicks during the night. He occasionally has crawling and aching feelings in his legs and frequently has leg pain during the night. He denies grinding his teeth during sleep and denies awakening with morning jaw pain. He is frequently bothered by pain during the day and frequently awakened by pain during the night. He occasionally wakes up feeling stiff in the morning. He occasionally wakes up with sore or achy muscles. He occasionally wakes up with pain in the neck, spine or other joints. He goes to bed at 11:00 p.m. on weekdays and at midnight on the weekends. It takes him 1 hour to fall asleep. He wakes up 2-3 times throughout the night for unknown reasons. He can take him 2 hours to fall back asleep. He wakes up at 8:00 a.m. on both weekdays and weekends. He typically gets 4-5 hours of sleep per night. He will stay in bed for 30 minutes after waking up in the morning. He currently lives with his and 4 children. He does not consume any caffeinated beverages within 2 hours of bedtime. He does not engage in physical exercise before bedtime. He will read and watch television before falling asleep. He will take naps in the afternoon or the evening but they are not refreshing. He drinks 3 caffeinated beverages per day. He denies tobacco, alcohol and recreational drug use. [facility] Past Medical History Medical History Abnormal CT scan, sigmoid colon Allergies Asthma Bleeding nose Congestion of throat Diabetes mellitus Establishing care with new doctor, encounter for Foot pain Hyperlipidemia Knee pain Obesity Patellar tendonitis Screening for endocrine disorder Screening for lipid disorders Splenomegaly Telangiectasia Thrombocytopenia Vitamin B 12 deficiency Surgical History Surgical History History of surgery on wrist 1998, 2020 History of surgical procedure on mouth 1999 Family History Family History Mother Depression Anxiety Alcohol abuse Father Diabetes mellitus Sibling Diabetes mellitus Grandparent Diabetes mellitus Hypertension Other Leukemia Other Arthritis Asthma Social History Social History Social History: Caffeine-coffee/soda daily Smoking status: Never smoke
[2022-10-21 19:44] VITALS: BMI 40.3
== END 2022-10-16 11:24 | disposition home or self-care (01) ==
LOC: ANHCSM 08:21
PROVIDERS: PCP Internal Medicine; Visit Provider Nurse Practitioner
DX: G47.10 Hypersomnia, unspecified (principal); R40.0 Somnolence
CPT/HCPCS: 95806

== ENCOUNTER 2022-12-12 09:50 | Outpatient (CLI) | payer OTHER, SELFPAY ==
[2022-12-17 18:41] LABS: EBV Nuclear Ab Antibody >600.00 U/mL (<18.00); EBV Nuclear Ab Interpretation Past; EBV Virus Capsid Ag IgG Ab >750.00 U/mL (<18.00); EBV Virus Capsid Ag IgM Ab <36.00 U/mL (<36.00)
== END 2022-12-12 09:51 | disposition home or self-care (01) ==
LOC: ANHLAB 09:51
PROVIDERS: PCP Internal Medicine; Visit Provider Internal Medicine Hematology & Oncology
DX: R16.1 Splenomegaly, not elsewhere classified (principal)
CPT/HCPCS: 36415; 86664; 86665